=== PATIENT | male | born 1990 | race Two or more races ===

== ENCOUNTER 2025-04-20 22:15 | Emergency (ER) | payer BC, OTHER ==
[~2025-04-20] VITALS: Ht 177.8 cm; Wt 113.4 kg
[2025-04-20] MEDS: IV NS 0.9% 1,000 ML BAG IV ONE (22:53)
[2025-04-20] MEDS: ONDANSETRON HCL/PF 4 MG/2 ML VIAL IVP ONE (22:53)
[2025-04-20 23:03] LABS: PLATELET COUNT (AUTO) 128 K/uL (150-450); RED BLOOD CELL COUNT(AUTO) 4.28 MIL/uL (4.5-6.0); RED CELL DISTRIBUTION WIDTH 16.2 % (11.5-15.0); WHITE BLOOD COUNT (AUTO) 7.0 K/uL (4.3-11.0)
[2025-04-20] MEDS ORDERED: ACETAMINOPHEN ES 500 MG TABLET ONE (23:33)
[2025-04-20] MEDS: ACETAMINOPHEN ES 500 MG TABLET PO ONE (23:35)
[2025-04-20 23:41] LABS: CALCIUM, SERUM 7.7 mg/dL (8.5-10.1); CREATININE 0.6 mg/dL (0.6-1.3); SODIUM SERUM 134.0 mmol/L (136-145); UREA NITROGEN, BLOOD 8.0 mg/dL (7-18)
[2025-04-20 23:47] LABS: ASPARTATE AMINOTRANSFERASE 44.0 U/L (15-37); TOTAL PROTEIN, SERUM 7.4 g/dL (6.4-8.2)
[2025-04-21 00:33] LABS: AMPHETAMINE, URINE NEGATIVE (NEGATIVE); BARBITURATE, URINE NEGATIVE (NEGATIVE); BENZODIAZEPINE, URINE NEGATIVE (NEGATIVE); CANNABINOID, URINE NEGATIVE (NEGATIVE); COCCAINE, URINE NEGATIVE (NEGATIVE); OPIATE, URINE NEGATIVE (NEGATIVE)
[2025-04-21 00:35] LABS: APPEARANCE,URINE CLEAR (CLEAR); BLOOD, URINE NEGATIVE Ery/uL (NEGATIVE); LEUKOCYTE ESTERASE ,URINE NEGATIVE (NEGATIVE); NITRITE, URINE NEGATIVE (NEGATIVE); UGLUCOSE TRACE mg/dL (NEGATIVE)
[2025-04-21 00:54] LABS: ADD URINE CULTURE NO; COARSE GRANULAR CASTS,URINE Rare /LPF (None Seen)
[2025-04-21 00:55] LABS: SQUAMOUS EPITHELIAL CELL,UR Moderate /HPF (None Seen)
[2025-04-21 01:12] LABS: SERUM AMMONIA 84 umol/L (11-32)
[2025-04-21] MEDS ORDERED: CT SWABBABLE VALVE TRANS SET 1 EA INFUS.SET MC ONE (01:17)
[2025-04-21] MEDS ORDERED: IOHEXOL-300 100 ML VIAL IV ONE (01:17)
[2025-04-21] MEDS ORDERED: IV NS 0.9% 250 ML IV ONE (01:19)
[2025-04-21] MEDS ORDERED: LABETALOL 20 MG/4 ML VIAL ONE (01:42)
[2025-04-21] MEDS: LABETALOL 20 MG/4 ML VIAL IV ONE (01:47)
[2025-04-21 02:02] LABS: INR 1.55 (0.91-1.10)
[2025-04-21 06:30] VITALS: TEMP 98
[2025-04-21 07:45] VITALS: BP 124/73; O2SAT 100
== END 2025-04-21 08:22 ==
LOC: ER 22:17
DX: S00.93XA Contusion of unspecified part of head, initial encounter (principal); I61.9 Nontraumatic intracerebral hemorrhage, unspecified; E86.0 Dehydration; F10.129 Alcohol abuse with intoxication, unspecified; R45.6 Violent behavior; R11.0 Nausea; Z79.899 Other long term (current) drug therapy; Y90.9 Presence of alcohol in blood, level not specified
CPT/HCPCS: 99291; 99292; 96374; 96361; 85025; 80048; 83690; 80076; 85610; 85730; 36415 ×2; 80320; 80307; 96375; 93005; 70450; 82140; 81001; 80143; J2405; J7030; J7050; J3490; Q9967; G0480